=== PATIENT | female | born 1960 | race Caucasian/White ===

== ENCOUNTER 2022-05-19 06:20 | Day surgery (SDC) | payer MEDICARE, OTHER ==
[~2022-05-19 06:20] MED LIST: DEXAMETHASONE SOD PHOSPHATE 4 MG/ML 1 ML VIAL IV PRN; FAMOTIDINE 20 MG/2 ML VIAL IV PRN; metroNIDAZOLE-NS PMX 500 MG in SALINE 1 100ML.BAG IVPB PRN
[2022-05-19] MEDS ORDERED: LIDOCAINE 1% (10MG/ML) FOR IV START INTRADERMA PRN (06:22)
[2022-05-19] MEDS ORDERED: MIDAZOLAM 2 MG/2 ML VIAL IV PRN (06:22)
[2022-05-19] MEDS ORDERED: LACTATED RINGERS 1,000 ML IV SCH (06:22)
[2022-05-19] MEDS ORDERED: DEXAMETHASONE SOD PHOSPHATE 4 MG/ML 1 ML VIAL IV ONE (06:22)
[2022-05-19] MEDS ORDERED: ONDANSETRON 4 MG/2 ML VIAL IVP ONE (06:22)
[2022-05-19] MEDS ORDERED: HYDROmorphone 0.5 MG/0.5 ML SYRINGE IVP PRN (07:00)
[2022-05-19] MEDS ORDERED: BUPIVACAIN-EPI 0.25%-1:200,000 30 ML VIAL SQ ONE ×2 (07:23)
[2022-05-19] MEDS ORDERED: LIDOCAINE 1%-EPI 1:100,000 20 ML VIAL SQ ONE ×2 (07:23)
[2022-05-19] MEDS ORDERED: MIDAZOLAM 2 MG/2 ML VIAL ONE (07:26)
[2022-05-19] MEDS ORDERED: PROPOFOL 10 MG/ML 20 ML VIAL IV ONE (07:26)
[2022-05-19] MEDS ORDERED: KETAMINE 10 MG/ML 20 ML VIAL ONE (07:26)
[2022-05-19 10:09] VITALS: TEMP 97
--- NOTE | 2022-05-19 10:15 | P.OP ---
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 Postoperative Diagnosis: Same Procedure(s) Performed: Excision of a 2.1 x 2.1 cm nasal tip basal cell carcinoma with reconstruction utilizing a full-thickness skin graft with use of frozen section Excision of a 4.1 x 2 cm left upper forehead skin cancer with reconstruction utilizing a bilateral advancement flap closure with a secondary defect measuring 8.2 x 4 cm Shave excision of a 1.1 cm right forehead lesion Shave excision of a 2.1 cm left cheek lesion Anesthesia: MAC Surgeon: London Lyons Estimated Blood Loss (ml): 5 Pathology: other (Nasal tip, left forehead, right forehead, left cheek) Condition: stable Disposition: PACU Indications for Procedure: This patient had several lesions that she is concerned about. She is a heavy smoker and has an ulcerative lesion of the nasal tip this been present for over 2 years. He continues to grow and change. It's friable and bleeds and throbs. She also underwent surgery noted that there is a ulcerative lesion of the left upper forehead patient like to have removed. In addition she has a lesion of the left cheek and the right forehead and we felt that a shave excision was appropriate. All risks, benefits and alternative therapies were discussed in detail. Consent was obtained and all questions were answered. Operative Findings: The left forehead lesion was a basal cell carcinoma and all margins were negative for tumor. The nasal tip lesion came back as a basal cell carcinoma we needed revisional resection to get clean margins. The right forehead and left cheek lesions were sent for permanent specimens. Description of Procedure: Patient was taken to the operative room and placed in the supine position. IV sedation was administered to the patient because of her risk of malignant hyperthermia. The face was sterilely prepped and draped in usual fashion and these lesions were marked and anesthetized with lidocaine 1% with epinephrine 1 100,000. 10 minutes were allowed wait for full vasoconstrictive effects to take place. At this time we made an incision for removal of the left upper forehead lesion which was ulcerative. Excision measured 4.1 x 2 cm and was sent this for frozen section and all margins were negative for tumor. We then developed medial and lateral advancement flaps with removal of burrows triangles. We did extensive undermining to rotate the skin into the defect and close the defect. We closest deeply with 4-0 Prolene. We closed the deep dermal layer with 4-0 Monocryl. We closed the skin with a 5-0 Prolene in a running locking fashion. Excellent approximation was obtained. Attention was then paid to the nasal tip where we excise this nasal tip lesion and sent this for frozen section. Superior margins inferior margins and lateral and medial margins were all positive we then did a wider resection and the superior margins were still positive and we terminated more tissue from the superior margin. We then excised appropriate amount of skin postauricularly behind the right ear we closed the donor site in the usual fashion and we prepped the skin unrelated as an overlay graft. A bolster dressing was applied and the nasal tip was reconstructed with use of a bolster dressing. Full-thickness skin graft had an excellent contour. Patient will need to not smoke during the recovery process. She's been advised that this will tell the graft. We then paid attention to the right forehead and left cheek the right forehead lesion the lesion measuring 1.1 cm left cheek lesion measured 2.1 cm. We used a dermal blade and did a shave excision and with use of Monsel solution controlled any bleeding. Excellent results were obtained. Bacitracin ointment was applied appropriately. Patient is to follow-up in the office in 1 week and was advised not to smoke.
[2022-05-19 11:17] VITALS: RESP 18
[2022-05-19 11:39] VITALS: BP 119/76; PULSE 71
== END 2022-05-19 12:48 | disposition home or self-care (01) ==
LOC: OR 06:20
PROVIDERS: ATTEND Otolaryngology
DX: C44.311 Basal cell carcinoma of skin of nose (principal); C44.319 Basal cell carcinoma of skin of other parts of face; L82.1 Other seborrheic keratosis; Z88.2 Allergy status to sulfonamides; Z88.5 Allergy status to narcotic agent; Z80.3 Family history of malignant neoplasm of breast; Z80.1 Family history of malignant neoplasm of trachea, bronchus and lung; F32.A Depression, unspecified; F17.200 Nicotine dependence, unspecified, uncomplicated; D68.2 Hereditary deficiency of other clotting factors; I10 Essential (primary) hypertension; J44.9 Chronic obstructive pulmonary disease, unspecified; Z79.51 Long term (current) use of inhaled steroids; Z79.1 Long term (current) use of non-steroidal anti-inflammatories (NSAID); Z79.899 Other long term (current) drug therapy
CPT/HCPCS: 88305; 88331; 88332; 15260; 14040; 11312; 11313; J2250; J1100; J0690; J2405; J2704; J1170